=== PATIENT | male | born 1975 | race African-American/Black ===

== ENCOUNTER 2019-10-16 05:57 | Emergency (ER) | payer OTHER, SELFPAY ==
[2019-10-16 06:16] VITALS: BP 130/80; PULSE 94; RESP 18; TEMP 36.6; O2SAT 98
--- NOTE | 2019-10-16 06:16 | ED.GENADULT ---
HPI - General Adult General Chief complaint: Upper Respiratory Symptoms Stated complaint: thinks he has strep throat Time Seen by Provider: 10/16/19 06:11 Source: patient Mode of arrival: Ambulatory Limitations: no limitations History of Present Illness HPI narrative: This is a 44-year-old male comes emergency department with complaint of sore throat and swelling of his tonsils for the past 2 days. Patient states he has had increasing pain he noticed spots on the back of his tonsils. States his voice is hoarse. He denies any nasal congestion, he denies any muffled voice. He denies any swelling of his face or tongue. He states his lymph nodes do feel bag. He denies any cough or congestion. He denies any chest pain or shortness of breath. No nausea, no vomiting or GI or urinary symptoms. Denies fevers. Patient has not any rashes or skin changes. States he is otherwise healthy. States he had a right meniscal repair on his knee remotely. Denies any allergies to medications. Related Data Home Medications Medication Instructions Recorded Confirmed atorvastatin [Lipitor] 20 mg PO HS #0 12/09/17 ibuprofen [Advil] 200 mg PO Q4HP PRN #0 12/09/17 loratadine [Claritin] 10 mg PO QDAYP PRN #0 12/09/17 naproxen 250 mg PO PRN PRN #0 12/09/17 Previous Rx's Medication Instructions Recorded amoxicillin 500 mg PO Q8H #30 tab 10/16/19 Allergies Allergy/AdvReac Type Severity Reaction Status Date / Time No Known Allergies Allergy Uncoded 02/16/18 12:16 Review of Systems Review of Systems ROS Unobtainable: All systems reviewed & are unremarkable except as noted in HPI and below Patient History Surgical History (Updated 10/16/19 @ 06:19 by Katie Vaughn DO) H/O medial meniscus repair of right knee (Acute) Social History Smoking Status: Never smoker Exam Narrative Exam Narrative: GEN: well nourished, well appearing male, alert and oriented x 3, patient appears to be in mild distress. HEENT: Atraumatic, pupils are equal round reactive to light, extraocular movements are intact, nares are clear, TMs are clear with no fluid, there is no conjunctival pallor. Throat is erythematous with bilateral tonsillar enlargement, patient has exudate bilaterally. Patient is slightly hoarse. No muffled voice. No stridor. Patient has no issues swallowing secretions or saliva. HEART: Regular rate and rhythm without murmur, clicks, rubs. No carotid bruits, pulses are equal in upper and lower extremities LUNGS:Lungs clear to auscultation, no wheezes, rales, crackles, chest moves symmetrically ABD:bowel sounds normal, soft, non-tender, no guarding, rebound, rigidity, no masses noted, no hepatosplenomegaly MSCL: Full range of motion, normal gait NEURO:CN 2-12 intact, sensation normal SKIN: no rash or skin changes. Initial Vital Signs Initial Vital Signs: Vital Signs Temperature 98 F 10/16/19 06:16 Pulse Rate 94 H 10/16/19 06:16 Respiratory Rate 18 10/16/19 06:16 Blood Pressure 130/80 10/16/19 06:16 Pulse Oximetry 98 10/16/19 06:16 Course Vital Signs Vital signs: Vital Signs - 8 hr 10/16/19 06:16 Temperature 98 F Pulse Rate 94 H Respiratory Rate 18 Blood Pressure 130/80 Pulse Oximetry 98 Medical Decision Making Lab Data Lab results reviewed: Yes I reviewed the patient's lab results. Labs: Point of Care Testing Rapid Strep A Positive Point of care testing: Point of Care Testing Rapid Strep A Positive Discharge Plan Departure Patient Disposition: Home Clinical Impression: Pharyngitis Instructions: DI for Pharyngitis/Tonsillopharyngitis -- Adult Activity Restrictions/Additional Instructions: Follow up with primary care if your symptoms are not resolving in the next 5-7 days. Continue ibuprofen up to 800 mg every 8 hours and/or Tylenol up to a 1000 mg every 8 hours. Take antibiotics until completely gone. Continue with salt water gargling as needed for swelling. Return to the ER for increasing swelling, muffled voice, inability to swallow your secretions or saliva, swelling of the neck, airway, face or tongue new rashes or other new or concerning symptoms. Prescriptions: New amoxicillin 500 mg tablet 500 mg PO Q8H Qty: 30 RF: 0 No Action naproxen 250 MG tablet 250 mg PO PRN PRNQty: 0 RF: 0 loratadine [Claritin] 10 MG tablet 10 mg PO QDAYP PRNQty: 0 RF: 0 atorvastatin [Lipitor] 20 MG tablet 20 mg PO HS Qty: 0 RF: 0 ibuprofen [Advil] 200 MG tablet 200 mg PO Q4HP PRNQty: 0 RF: 0 Stand Alone Forms: Work Release Note
== END 2019-10-16 06:40 | disposition home or self-care (01) ==
PROVIDERS: Emergency Provider Emergency Medicine
DX: J02.0 Streptococcal pharyngitis (principal)
CPT/HCPCS: 87880; 99282; 99283

== ENCOUNTER 2023-05-19 07:44 | Day surgery (SDC) | payer OTHER, SELFPAY ==
[2023-05-19 08:02] VITALS: BP 118/78; PULSE 79; RESP 17; TEMP 36.1; O2SAT 99; BMI 27.8
[2023-05-19] MEDS: LACTATED RINGERS 1,000 ML 125 ML IV (08:12)
--- NOTE | 2023-05-19 08:30 | PM.HP.1 ---
History of Present Illness History of Present Illness Date Patient Seen: 05/19/23 Chief complaint: SDC Narrative: First screening colonoscopy [facility] Medical History (Updated 08/07/20 @ 11:02 by Yanique Whitehead PA-C) Otitis externa Surgical History (Updated 05/19/23 @ 07:59 by Andrade Pollock RN) H/O knee surgery H/O medial meniscus repair of right knee Social History household members: spouse Smoking Status: Never smoker alcohol intake: current Meds Home Medications and Allergies Home Medications Medication Instructions Recorded Confirmed Type atorvastatin 20 mg tablet (Lipitor) 20 mg PO HS ##0 12/09/17 05/19/23 History ibuprofen 200 mg tablet (Advil) 200 mg PO Q4HP PRN ##0 12/09/17 08/07/20 History loratadine 10 mg tablet (Claritin) 10 mg PO QDAYP PRN Allergy 12/09/17 05/19/23 History Symptoms ##0 naproxen 250 mg tablet 250 mg PO PRN PRN ##0 12/09/17 08/07/20 History Allergies Allergy/AdvReac Type Severity Reaction Status Date / Time No Known Allergies Allergy Uncoded 08/07/20 10:49 Exam Vital Signs (past 8 hours): - 05/19/23 08:02 Temperature 97 F L Pulse Rate 79 Respiratory Rate 17 Blood Pressure 118/78 Pulse Oximetry 99 Oxygen Delivery Method Room Air Oxygen Delivery Method Room Air Narrative Exam Narrative: Oropharynx free of lesions Chest clear to auscultation percussion Cardiac exam reveals no S3 or murmur Assessment & Plan Assessment & Plan narrative: Need for 1st screening colonoscopy. Risks, benefits, alternatives have been explained.
--- NOTE | 2023-05-19 08:31 | PM.OP.COLON ---
Operative Date/Time/Diagnoses Date of procedure: 05/19/23 Pre-op diagnosis: See indication and findings Procedure & Clinicians Study performed: Colonoscopy Indications: 1st screening colonoscopy Surgeon: Cristhian Hernandez Procedure Notes Procedure in detail: After informed consent was obtained the patient was placed in left lateral decubitus position. The video colonoscope was introduced the rectum slowly advanced cecum. On slow withdrawal mucosa was carefully examined. The scope was removed. The patient tolerated procedure well. Blood loss none Complications none Sedation mac Findings 1. Normal colonoscopy to cecum Patient should have follow-up colonoscopy in 10 years
[2023-05-19 09:31] VITALS: BP 90/59; PULSE 70; RESP 15; TEMP 36.8; O2SAT 97
[2023-05-19 09:36] VITALS: BP 110/69; PULSE 80; RESP 15; TEMP 36.2; O2SAT 100
[2023-05-19 09:44] VITALS: BP 104/74; PULSE 78; RESP 13; TEMP 36.2; O2SAT 100
[2023-05-19 10:00] VITALS: BP 101/76; PULSE 77; RESP 19; TEMP 36.6; O2SAT 100
== END 2023-05-19 10:05 | disposition home or self-care (01) ==
PROVIDERS: Referring Provider Internal Medicine Gastroenterology; Visit Provider Internal Medicine Gastroenterology
PROC: 0DJD8ZZ Inspection of Lower Intestinal Tract, Via Natural or Artificial Opening Endoscopic (ICD-10-PCS; CPT 45378; principal; 2023-05-19 09:00)
DX: Z12.11 Encounter for screening for malignant neoplasm of colon (principal)
CPT/HCPCS: 45378; J2704